=== PATIENT | female | born 1985 | race Caucasian/White ===

== ENCOUNTER 2018-05-17 17:12 | Emergency (ER) | payer OTHER ==
[~2018-05-17] VITALS: Wt 130.0 kg
[2018-05-17] MEDS ORDERED: KETOROLAC 60 MG INJ IM STA (19:18)
[2018-05-17] MEDS ORDERED: DEXAMETHASONE 10 MG/ML 1 ML INJ IM ONE (19:30)
[2018-05-17] MEDS ORDERED: CLINDAMYCIN 300 MG CAP PO ONE (19:30)
[2018-05-17] MEDS ORDERED: HYDROCODONE/APAP (10/325) TAB PO ONE (19:30)
[2018-05-17] MEDS ORDERED: IBUP800T48 PO (20:14)
[2018-05-17] MEDS ORDERED: CLIN300C10 PO (20:14)
[2018-05-17] MEDS ORDERED: TRAM50TA2 PO (20:14)
[2018-05-17 20:32] VITALS: BP 155/81; PULSE 66; RESP 18
--- NOTE | 2018-05-17 20:39 | ERD ---
ER Documentation Chief Complaint Chief Complaint DENTAL PAIN X 3 DAYS HPI 32 year-old [female] coming in today with Chief Complaint: Dental pain History of Present Illness: Dental pain for 3 days. Patient reports feeling her tooth filling falling out at approximately 9 AM 3 days ago. Patient reporting to obtain pain, throbbing, consistent. Associated symptoms include left lower jaw swelling and pain for 2 days. Review of systems: All systems were reviewed and are negative except for what is indicated in the history of present illness. Past Medical History: Seizure disorder; positive surgical history for Social History: Positive tobacco use, negative alcohol use, positive marijuana use; denies any other illicit drugs Medications: [Reviewed as documented Nursing Notes] Allergies: [Reviewed as documented in Nursing Notes] Social Concerns: Denies ROS All systems reviewed and are negative except as per history of present illness. Medications Home Meds Active Scripts Tramadol HCl (Tramadol HCl) 50 Mg Tablet, 50 MG PO Q4 PRN for PAIN LEVEL 6-10, #10 TAB Prov:ESTEPHANIA LO NP 05/17/18 Clindamycin Hcl* (Clindamycin Hcl*) 300 Mg Capsule, 300 MG PO TID for dental infection prevention for 7 Days, CAP Prov:ESTEPHANIA LO V RADIOLOGY ASST 05/17/18 Ibuprofen* (Motrin*) 800 Mg Tab, 800 MG PO Q6H PRN for INFLAMATION, #30 TAB Prov:ESTEPHANIA LO V RADIOLOGY ASST 05/17/18 Allergies Allergies: Coded Allergies: Penicillins (Verified Allergy, Unknown, 02/16/13) PMhx/Soc Hx Alcohol Use: No Hx Substance Use: No Hx Tobacco Use: No Smoking Status: Never smoker FmHx Family History: diabetes, coronary disease Physical Exam Vitals Vital Signs Date Temp Pulse Resp B/P (MAP) Pulse Ox O2 O2 Flow FiO2 Time Delivery Rate 05/17/18 98.4 66 18 155/81 98 Room Air 20:32 (105) 05/17/18 98.0 84 18 156/71 99 17:17 (99) Physical Exam Const: No acute distress, patient restless Head: Atraumatic Eyes: Normal Conjunctiva ENT: Normal External Ears, Nose and Mouth. filling Missing from tooth #18. Neck: Full range of motion. No meningismus. Resp: Clear to auscultation bilaterally Cardio: Regular rate and rhythm, no murmurs Abd: Soft, non tender, non distended. Normal bowel sounds Skin: No petechiae or rashes Back: No midline or flank tenderness Ext: No cyanosis, or edema Neur: Awake and alert Psych: Normal Mood and Affect Results 24 hrs Laboratory Tests Test 05/17/18 19:47 POC Beta HCG, Qualitative NEGATIVE Current Medications Medications Dose Sig/Jyoti Start Time Status Last (Trade) Ordered Route PRN Stop Time Admin Dose Reason Admin Ketorolac 60 mg ONCE STAT 05/17/18 DC 05/17/18 Tromethamine IM 19:18 19:34 (Toradol) 05/17/18 19:20 10 mg ONCE ONCE 05/17/18 DC 05/17/18 Dexamethasone IM 19:30 19:34 (Decadron) 05/17/18 19:31 Clindamycin 300 mg ONCE ONCE 05/17/18 DC 05/17/18 HCl PO 19:30 19:43 (Cleocin) 05/17/18 19:31 1 tab ONCE ONCE 05/17/18 DC 05/17/18 Acetaminophen PO 19:30 19:34 / 05/17/18 19:31 Hydrocodone Bitart ([place] (10/325)) Procedures/MDM ED course includes a thorough examination and history. Course includes medication; anti-inflammatory, prophylactic antibiotic, opiate for pain control Low suspicion for lobe eileen angina, systemic infection, HEENT life threatening medical emergency Otherwise healthy patient presenting with constellation of symptoms likely representing uncomplicated loss of feeling as characterized by history, physical exam findings. No respiratory distress, otherwise relatively well appearing and nontoxic. Patient educated on diagnoses, prescriptions, follow-up care, return precautions. Strict return precautions given for worsening condition; questions answered discharge. Disposition for discharge with followup in 1-2 days with dentist AND PCP/clinic. Departure Diagnosis: Primary Impression: Pain, dental Additional Impression: Loss of filling from access hole of tooth Condition: Stable Patient Instructions: Dental Abscess, Dental Pain Referrals: COMMUNITY CLINICS YOU HAVE RECEIVED A MEDICAL SCREENING EXAM AND THE RESULTS INDICATE THAT YOU DO NOT HAVE A CONDITION THAT REQUIRES URGENT TREATMENT IN THE EMERGENCY DEPARTMENT. FURTHER EVALUATION AND TREATMENT OF YOUR CONDITION CAN WAIT UNTIL YOU ARE SEEN IN YOUR DOCTORS OFFICE WITHIN THE NEXT 1-2 DAYS. IT IS YOUR RESPONSIBILITY TO MAKE AN APPOINTMENT FOR FOLOW-UP CARE. IF YOU HAVE A PRIMARY DOCTOR --you should call your primary doctor and schedule an appointment IF YOU DO NOT HAVE A PRIMARY DOCTOR YOU CAN CALL OUR PHYSICIAN REFERRAL HOTLINE AT IF YOU CAN NOT AFFORD TO SEE A PHYSICIAN YOU CAN CHOSE FROM THE FOLLOWING [facility] [address] [facility] [address] [facility] [address] [facility] [address] [facility] [address] [facility]. [facility] [address] [facility]. [facility] YOU HAVE RECEIVED A MEDICAL SCREENING EXAM AND THE RESULTS INDICATE THAT YOU DO NOT HAVE A CONDITION THAT REQUIRES URGENT TREATMENT IN THE EMERGENCY DEPARTMENT. FURTHER EVALUATION AND TREATMENT OF YOUR CONDITION CAN WAIT UNTIL YOU ARE SEEN IN YOUR DOCTORS OFFICE WITHIN THE NEXT 1-2 DAYS. IT IS YOUR RESPONSIBILITY TO MAKE AN APPOINTMENT FOR FOLOW-UP CARE. IF YOU HAVE A PRIMARY DOCTOR --you should call your primary doctor and schedule and appointment IF YOU DO NOT HAVE A PRIMARY DOCTOR YOU CAN CALL OUR PHYSICIAN REFERRAL HOTLINE AT . IF YOU CAN NOT AFFORD TO SEE A PHYSICIAN YOU CAN CHOSE FROM THE FOLLOWING [facility]: [facility] [address] [place] [address] [facility] [address] [place] [address] [facility] [address] [place] [address] [facility] DENTIST ([facility] walk in clinic) Additional Instructions: Call dentist first thing Saturday morning for appointment. Examination will be needed to fix filling. ESTEPHANIA LO NP May 17, 2018 20:39
== END 2018-05-17 20:34 | disposition home or self-care (01) ==
LOC: FTE 17:12
DX: K08.89 Other specified disorders of teeth and supporting structures (principal); K08.59 Other unsatisfactory restoration of tooth
CPT/HCPCS: 81025; 96372; J1100; J1885; Z7502; Z7610